=== PATIENT | female | born 2000 | race Two or more races ===

== ENCOUNTER 2022-03-21 12:33 | Emergency (ER) | payer OTHER ==
[2022-03-21 12:53] VITALS: BP 102/62; PULSE 75; TEMP 98.2; BMI 17.6
[2022-03-21] MEDS ORDERED: FAMOTIDINE 20 MG TABLET PO ONE (14:46)
[2022-03-21] MEDS ORDERED: MAG HYDROX/AL HYDROX/SIMETH -MYLANTA- ORAL SUSPENSION PO ONE (14:46)
[2022-03-21] MEDS ORDERED: FAMOTIDINE 20 MG TABLET ONE (14:52)
[2022-03-21] MEDS ORDERED: MAG HYDROX/AL HYDROX/SIMETH 30 ML UNIT-DOSE CUP ONE (14:52)
[2022-03-21 15:04] LABS: BASO % 0.2 % (0-2.0); EOS % 0.9 % (0-4.5); HEMATOCRIT 37.3 % (32.4-45.2); HEMOGLOBIN 12.1 GM/dL (10.7-15.3); LYMPH % 23.8 % (8-40); MCH 26.7 pg (25.7-33.7); MCHC 32.4 g/dl (32.0-36.0); MEAN CELL VOLUME 82.5 fl (80-96); MEAN PLT VOLUME 6.8 fl (7.5-11.1); MONO % 7.7 % (3.8-10.2); NEUT % 67.4 % (42.8-82.8); PLATELET COUNT 364 10^3/uL (134-434); RBC 4.53 M/mm3 (3.60-5.2); RDW 15.7 % (11.6-15.6)
[2022-03-21 15:26] LABS: CALCIUM 9.4 mg/dL (8.5-10.1)
[2022-03-21 15:27] LABS: BLOOD UREA NITROGEN 10.5 mg/dL (7-18)
[2022-03-21 15:31] LABS: BILIRUBIN,TOTAL 0.3 mg/dL (0.2-1); CREATININE 0.6 mg/dL (0.55-1.3)
[2022-03-21 15:32] LABS: TOT PROT 6.8 g/dl (6.4-8.2)
[2022-03-21 16:36] LABS: URINE APPEARANCE CLEAR; URINE BILIRUBIN NEGATIVE (NEGATIVE); URINE COLOR YELLOW; URINE GLUCOSE (UA) NEGATIVE (NEGATIVE); URINE KETONE NEGATIVE (NEGATIVE); URINE LEUK ESTERASE NEGATIVE (NEGATIVE); URINE NITRITE NEGATIVE (NEGATIVE); URINE PROTEIN NEGATIVE (NEGATIVE); URINE UROBILINOGEN 0.2 mg/dL (0.2-1.0)
[2022-03-21 16:38] LABS: HCG,QUALITATIVE URINE Negative
== END 2022-03-21 17:30 | disposition home or self-care (01) ==
LOC: JERFT 12:33
DX: R10.13 Epigastric pain (principal)
CPT/HCPCS: 36415; 76705-TC; 80053; 81003; 83690; 84703; 85025; 87086; 99284-25

== ENCOUNTER 2022-04-06 19:15 | Emergency (ER) | payer OTHER ==
[2022-04-06 19:23] VITALS: BP 98/62; PULSE 96; TEMP 98; BMI 19.5
[2022-04-06] MEDS ORDERED: KETOROLAC TROMETHAMINE 30 MG/1 ML VIAL IM ONE (20:41)
[2022-04-06] MEDS ORDERED: METOCLOPRAMIDE HCL 10 MG TABLET (FP) PO ONE ×2 (20:42→21:06)
[2022-04-06] MEDS ORDERED: MECLIZINE HCL 25 MG TABLET (FP) PO ONE (20:42)
[2022-04-06] MEDS ORDERED: MECLIZINE HCL 25 MG TABLET (FP) ONE (21:06)
== END 2022-04-06 23:15 | disposition home or self-care (01) ==
LOC: JER 19:15
PROC: 3E0233Z Introduction of Anti-inflammatory into Muscle, Percutaneous Approach (ICD-10-PCS; principal; 2022-04-06)
DX: R55 Syncope and collapse (principal)
CPT/HCPCS: 84703; 99284-25